=== PATIENT | female | born 1965 | race Two or more races ===

== ENCOUNTER 2018-01-27 03:50 | Emergency (ER) | payer BC ==
[~2018-01-27] VITALS: Ht 162.6 cm; Wt 74.3 kg
[2018-01-27 04:10] LABS: BASOPHILS % 1.4 % (0.0-2.0); EOSINOPHILS % 5.3 % (0.0-5.0); HEMATOCRIT. 44.3 % (36.0-48.0); HEMOGLOBIN. 14.7 g/dL (12.0-16.0); LYMPHOCYTES % 37.6 % (20.0-50.0); MEAN CORPUSCULAR HEMOGLOBIN 28.6 pg (28.0-32.0); MEAN CORPUSCULAR VOLUME 86.6 fL (81.0-99.0); MEAN PLATELET VOLUME 7.4 fl (7.4-10.4); MONOCYTES % 6.6 % (2.0-8.0); NEUTROPHILS % 49.1 % (40.0-76.0); PLATELET 224 x1000/uL (130-400); RED BLOOD CELL COUNT 5.12 mill/uL (4.2-5.4); RED CELL DISTRIBUTION WIDTH 13.3 % (11.6-14.6)
[2018-01-27 04:18] LABS: CHLORIDE 104 mEq/L (98-107); PROTHROMBIN TIME 9.9 sec (9.1-11.1)
[2018-01-27 04:22] LABS: ETHANOL BLOOD < 10 mg/dL
[2018-01-27 04:25] LABS: LDL CHOLESTEROL 165 mg/dL (5-100)
[2018-01-27] MEDS ORDERED: PREDNISONE 20MG TABLET PO ONE (05:15)
[2018-01-27] MEDS ORDERED: ACYCLOVIR 400 MG TABLET PO ONE (05:15)
[2018-01-27 05:20] VITALS: BP 138/83
[2018-01-27 07:09] LABS: CLARITY URINE CLEAR (CLEAR); COLOR URINE YELLOW (YELLOW); KETONES URINE NEGATIVE (NEGATIVE); LEUKOCYTE ESTERASE URINE TRACE (NEGATIVE); NITRITE URINE NEGATIVE (NEGATIVE); OCCULT BLOOD URINE NEGATIVE (NEGATIVE); PH URINE 5.5 (4.5-8.0); PROTEIN URINE NEGATIVE (NEGATIVE); SPECIFIC GRAVITY URINE 1.009 (1.005-1.030); UROBILINOGEN URINE 0.2 E.U./dL (0.2-1.0)
[2018-01-27 09:01] LABS: *AMPHETAMINES SCREEN URINE NEGATIVE (NEGATIVE); *BARBITURATES SCREEN URINE NEGATIVE (NEGATIVE); *BENZODIAZEPINES SCREEN URINE NEGATIVE (NEGATIVE); *COCAINE SCREEN URINE NEGATIVE (NEGATIVE); METHADONE URINE SCREEN NEGATIVE (NEGATIVE); OPIATES URINE SCREEN NEGATIVE (NEGATIVE)
[2018-01-27 09:02] LABS: CANNABINOID URINE SCREEN NEGATIVE (NEGATIVE); PHENCYCLIDINE URINE SCREEN NEGATIVE (NEGATIVE)
== END 2018-01-27 05:34 | disposition home or self-care (01) ==
LOC: ER 03:50 → CANBEDREQ 05:37
DX: G51.0 Bell's palsy (principal); E78.00 Pure hypercholesterolemia, unspecified
CPT/HCPCS: 36415; 70450; 71045; 80053; 80305; 81003; 82962; 83721; 84484; 85025; 85610; 93005; 99284; G0482